=== PATIENT | male | born 1980 | race Caucasian/White ===

== ENCOUNTER 2019-07-17 14:44 | Emergency (ER) | payer OTHER, SELFPAY ==
[2019-07-17 14:45] VITALS: BP 143/89; PULSE 110; RESP 18; O2SAT 96; BMI 30.4
--- NOTE | 2019-07-17 14:55 | W.ED.ALLEREA ---
HPI - Allergic Reaction General: Chief complaint: Allergic Reaction Stated complaint: ALLERGIC REACTION Time Seen by Provider: 07/17/19 14:48 Source: patient and EMS Mode of arrival: EMS Limitations: no limitations History of Present Illness: HPI narrative: 38-year-old male here by EMS with an allergic reaction. He states he was eating food and started to feel short of breath and has hives all over his body. Patient was given Benadryl in route states he is improved slightly but he still does have full body hives. He denies any worsening improving factors. He denies any previous allergic reactions. MD complaint: allergic reaction and hives Onset (ago): hour(s) Exposure: food Associated symptoms: Deny abdominal pain, nausea or vomiting Severity: moderate Treatment prior to arrival: benadryl Review of Systems Const: Denies: fever(s), chills, body aches or change in appetite Eyes: Denies: blurry vision or eye discomfort ENMT: Denies: throat pain or dental pain Card: Denies: chest pain Resp: Denies: dyspnea GI: Denies: abdominal pain, nausea, vomiting or diarrhea : Denies: dysuria Musc: Denies: neck pain or back pain Skin/Breast: Reports: rash Neuro: Denies: headache(s) Psych: Denies: depression Joselito/Lymph: Denies: easy bruising All/Imm: Denies: urticaria PFSH ED PFSH: Social History Smoking and tobacco status: never smoked Course Vital Signs: Vital signs: Vital Signs Pulse Rate 101 H 07/17/19 16:45 Respiratory Rate 18 07/17/19 16:45 Blood Pressure 122/71 07/17/19 16:45 Pulse Oximetry 93 07/17/19 16:45 MDM - Allergic Reaction MDM Narrative: Medical decision making narrative: Patient presents here with an allergic reaction. His rash is resolved with epinephrine and steroids. Patient is well-appearing here and is stable for discharge. Will place patient on EpiPen he is to avoid the food he came in contact with. He has no difficulty breathing. He is return if worsening. Discharge Plan Discharge Patient Disposition: Home, Self-Care Clinical Impression: Urticaria Allergic reaction Qualifiers: Encounter type: initial encounter Qualified Code(s): T78.40XA - Allergy, unspecified, initial encounter Condition: Stable Prescriptions: New EpiPen 2-Chivo 0.3 mg/0.3 mL auto-injector 0.3 mg IM Q10M PRN (Reason: anaphylaxis) Qty: 2 RF: 0 No Action Adderall 30 mg tablet 30 mg PO BID RF: 0 Discharge Orders: Discharge Order (Routine); Ordered 07/17/19 Ordered By: Cynthia Singer Referrals: Jean Paul Carranza MD [Primary Care Provider] - 4-7 days Discharge Diet: Advance as tolerated Discharge Activity: Resume usual activity Patient Instructions: Urticaria (ED), Anaphylaxis (ED) Discharge Date/Time: 07/17/19 16:48 Coding Level of Care Code ED 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
[2019-07-17] MEDS: ondansetron 2 mg/ML SDV 2 mL 4 MG IVP (14:59)
[2019-07-17] MEDS: EPINEPHrine 1 mg/mL INJ 0.3 MG IM (15:04)
[2019-07-17] MEDS: famotidine 20 mg/2 mL INJ 40 MG IVP (15:08)
--- NOTE | 2019-07-17 16:15 | ECG_ITS ---
Measurements Intervals Hibbs Rate: 99 P: 34 LA: 147 QRS: 67 QRSD: 84 T: 35 QT: 329 QTc: 423 SINUS RHYTHM No previous ECG available for comparison Electronically Signed On 07-18-2019 19:38:59 CDT by Willy Obrien M.D. [email or web address]
[2019-07-17 16:45] VITALS: BP 122/71; PULSE 101; RESP 18; O2SAT 93
== END 2019-07-17 16:48 | disposition home or self-care (01) ==
PROVIDERS: Emergency Provider Emergency Medicine; Family Provider Family Medicine; PCP Family Medicine
DX: L50.9 Urticaria, unspecified (principal); T78.40XA Allergy, unspecified, initial encounter
CPT/HCPCS: 12345; 93005; 96372; 96374; 96375; 99282; 99283; J0171; J2405; J2930; J3490

== ENCOUNTER → 2020-07-22 09:23 | Outpatient (BNVA) | payer OTHER, SELFPAY | PROVIDERS: PCP Nurse Practitioner Family; Referring Provider Nurse Practitioner Family; Visit Provider Urology | DX: R79.89 Other specified abnormal findings of blood chemistry (principal) | CPT/HCPCS: 84403 ==